=== PATIENT | male | born 1990 | race Caucasian/White ===

== ENCOUNTER 2021-06-06 17:15 | Emergency (ER) | payer OTHER ==
[~2021-06-06] VITALS: Ht 167.6 cm; Wt 108.9 kg
[2021-06-06 17:41] LABS: ABSOLUTE BASOPHILS 0.1 thou/uL (0.0-0.2); ABSOLUTE EOSINOPHILS 0.1 thou/uL (0.0-0.7); ABSOLUTE LYMPHOCYTES 2.6 thou/uL (0.8-5.3); ABSOLUTE MONOCYTES 1.1 thou/uL (0.0-1.2); ABSOLUTE NEUTROPHILS 9.3 thou/uL (1.6-8.1); EOSINOPHILS 0.6 %; HEMATOCRIT 45.5 % (42.0-52.0); HEMOGLOBIN 15.4 gm/dL (14.0-18.0); LYMPHOCYTES 19.6 %; MCH 31.2 pg (26.0-34.0); MCHC 33.8 g/dL (28.0-37.0); MCV 92.3 fL (80.0-100.0); MONOCYTES 8.1 %; MPV 8.9 fl. (7.2-11.1); NUCLEATED RBCS 0 /100WBC; PLATELET COUNT* 294 thou/uL (150-400); POLYS 70.7 %; RBC 4.93 mil/uL (4.50-6.00); RDW-CV 13.1 % (10.5-14.5); WBC 13.2 thou/uL (4.0-11.0)
[2021-06-06] MEDS ORDERED: KEPPRA 500 MG500 MG PO (17:58)
[2021-06-06] MEDS ORDERED: SEROQUEL300 MG PO (17:59)
[2021-06-06] MEDS ORDERED: MARTAZAPINE (18:00)
[2021-06-06 18:01] LABS: CALCIUM 9.1 mg/dL (8.5-10.1); CREATININE 1.6 mg/dL (0.6-1.3)
[2021-06-06 18:06] LABS: ALBUMIN 4.1 g/dL (3.4-5.0); TOTAL BILIRUBIN 0.4 mg/dL (<0.1-1.0); TOTAL PROTEIN 8.6 g/dL (6.4-8.2)
[2021-06-06 18:06] LABS: URINE BILIRUBIN NEGATIVE (Negative); URINE BLOOD 3+ (Negative); URINE CLARITY CLEAR; URINE COLOR YELLOW; URINE GLUCOSE-RANDOM NEGATIVE (Negative); URINE KETONES NEGATIVE (Negative); URINE LEUKOCYTES-REFLEX NEGATIVE (Negative); URINE NITRITE-REFLEX NEGATIVE (Negative); URINE PROTEIN 2+ (Negative); URINE SPECIFIC GRAVITY >= 1.030 (1.005-1.030); URINE UROBILINOGEN 0.2 E.U./dl (0.2-1.0)
[2021-06-06 18:13] LABS: SQUAMOUS 4-10 Moderate /LPF (0-3); URINE WBC-REFLEX 0-5 Rare /HPF (0-5)
[2021-06-06 18:14] LABS: BACTERIA-REFLEX 1-9 Few /HPF (None Seen); CRYSTALS None Seen /LPF (None Seen); HYALINE CASTS 0-3 Few /LPF (None Seen); MUCUS 0-3 Light strn/LPF (None Seen)
[2021-06-06 18:59] VITALS: BP 155/76
--- NOTE | 2021-06-07 12:21 | EKG ---
[place] [address] ELECTROCARDIOGRAM REPORT Name: RASHMI DRISCOLL Room: [facility]#: [id number] Admission: 06/06/21 Attend Phys: Discharge: 06/06/21 Date of : 89 Date of Service: 06/06/211738 Report #: [id number] THIS REPORT FOR: //name// [facility] ED Test Date: 2021-06-06 Test Time: 17:39:53 Pat Name: RASHMI DRISCOLL Department: Room: Gender: Encoding Clerk: : 1990 Requested By: Jatinder Saba Order Number: [id number] MD: Mino Jones Measurements Intervals [place] Rate: 113 P: 48 [place]: 153 QRS: 3 QRSD: 83 T: 43 QT: 326 QTc: 447 Interpretive Statements Sinus tachycardia No previous ECG available for comparison Electronically Signed On 06-07-2021 12:20:47 [employer] by Mino Jones [email or web address] <ELECTRONICALLY SIGNED> By: Mino Jones MD, [facility] 06/07/211219 [id number] Mino Jones MD, FACC /EPI
== END 2021-06-06 19:00 | disposition home or self-care (01) ==
LOC: M.ERS 17:15
PROVIDERS: Family Medicine
DX: R56.9 Unspecified convulsions (principal); Z20.822 Contact with and (suspected) exposure to COVID-19; R55 Syncope and collapse; R41.82 Altered mental status, unspecified; Z79.899 Other long term (current) drug therapy